=== PATIENT | female | born 1945 | race Caucasian/White ===

== ENCOUNTER → 2017-05-11 | Outpatient (CLI) | payer OTHER, MEDICARE ==
--- NOTE | 2017-05-12 14:10 | MRI ---
Indication: Pain Exam: MRI right shoulder without contrast. Technique: Routine multiplanar multisequence imaging was performed through the right shoulder. Findings: The glenohumeral joint is intact. There is moderate thickening and abnormal signal in the s upraspinatus and infraspinatus tendons with a focal defect along the distal the supraspinatus tendon measuring approximately 2.5 cm with the tendon retracted proximally to the acromion . This defect ext ends partially into the anterior aspect of the infraspinatus tendon which is not significantly retrac alejandro. There is mild fluid in the surrounding bursa. There is mild downsloping of the acromion causing mild narrowing of the acromiohumeral space. The labrum and biceps tendon are intact and in good posit ion. There are small rounded focus of subcortical abnormal signal along the humeral head posteriorly. Impression: Moderate full-thickness tear of the supraspinatus tendon and extending partially into the infra- spin atus tendon. Moderate hypertrophic changes of the AC joint and mild downsloping of the acromion causing mild narro wing of the acromiohumeral space. Subchondral cystic or erosive changes along the greater tuberosity and a questionable small focus of chronic osteonecrosis superior laterally with no acute bony abnormality seen. Reported By:
== END | disposition home or self-care (01) | DRG 558 ==
LOC: RAD 14:43
PROVIDERS: ATTEND Specialist
DX: M75.81 Other shoulder lesions, right shoulder (principal); M75.82 Other shoulder lesions, left shoulder
CPT/HCPCS: 73221